=== PATIENT | female | born 2000 | race Caucasian/White ===

== ENCOUNTER 2019-03-04 06:13 | Inpatient (IN) | payer MEDICAID ==
[~2019-03-04] VITALS: Ht 152.4 cm; Wt 56.4 kg
[2019-03-04 06:54] VITALS: Ht 152.4 cm; Wt 56.4 kg
[2019-03-04 06:56] VITALS: BP 115/74; PULSE 120; RESP 18
[2019-03-04] MEDS ORDERED: LIDOCAINE 1% (MPF) 30 ML INJ INJ PRN (07:00)
[2019-03-04] MEDS ORDERED: MISOPROSTOL 200 MCG TAB PR PRN ×2 (07:00→23:30)
[2019-03-04] MEDS ORDERED: CARBOPROST 250 MCG INJ IM PRN ×2 (07:00→23:30)
[2019-03-04] MEDS ORDERED: AMPICILLIN 2 GM/NS (PMX) 100 ML IV ONE (07:00)
[2019-03-04] MEDS ORDERED: OXYTOCIN 30 UNITS/LR 500 ML IV PRN ×2 (07:00→23:30)
[2019-03-04] MEDS ORDERED: OXYTOCIN 30 UNITS/LR 500 ML IV SCH ×4 (07:00→23:25)
[2019-03-04] MEDS ORDERED: BUTORPHANOL 2 MG INJ IV PRN (07:00)
[2019-03-04] MEDS ORDERED: METHYLERGONOVINE 0.2 MG INJ IM PRN ×2 (07:00→23:30)
--- NOTE | 2019-03-04 07:17 | TRIAGE ---
OB Triage Datetime Report Generated by CPN: 03/04/2019 07:17 Datetime: 03/04/2019 07:13 Time of Arrival: 03/04/2019 05:55 EGA: 39.1 Arrived By: Stretcher Arrived From: Home Chief Complaint: SROM @0500 Movement: Present Contractions: Irregular Rupture of Membranes: Ruptured Vaginal Bleeding: None Vaginal Discharge: Denies Recent Sexual Intercouse: Denies Abdominal Trauma: Not Applicable Patient Complaints: Contractions Time Provider Notified: 03/04/2019 06:40 Provider Notified: Initial Plan: EFM, VE Datetime: 03/04/2019 07:12 Assessment Type: Triage Maternal Assessment Level of Consciousness: Fully Conscious DTR's/Clonus: DTRs 2+; No Clonus Headache: Denies Blurred Vision: No Respiratory Effort: Unlabored; Regular Rhythm; Equal Expansion Breath Sounds, Left: Clear and Equal Breath Sounds, Right: Clear and Equal Nausea/Vomiting: Denies RUQ Epigastric Pain: Denies Facial Edema: None Fall Risk Assessment History of Falling: (0) No Secondary Diagnosis: (0) No Ambulatory Aid: (0) Bedrest/Nurse Assist IV Therapy: (0) No Gait: (0) Normal/Bedrest/Immobile Mental Status: (0) Oriented to Own Ability Fall Score: 0 Fall Risk Score Definition: No Risk: No action required Datetime: 03/04/2019 07:06 Station: -3 Datetime: 03/04/2019 07:05 Vaginal Exam Dilatation (cms): 1.0 Effacement (%): 80 Datetime: 03/04/2019 07:04 Membrane Status: Ruptured Datetime: 03/04/2019 07:03 Membrane Status: Intact Membrane Status: Ruptured Datetime: 03/04/2019 07:02 Membrane Status: Intact
[2019-03-04] MEDS: LACTATED RINGER'S 1,000 ML IV SCH ×4 (08:00→20:43)
[2019-03-04] MEDS ORDERED: AMPICILLIN 1 GM/NS (PMX) 50 ML IV SCH (11:00)
[2019-03-04] MEDS ORDERED: FENTAnyl 2MCG/ML-ROPIV 0.2% 100 ML ONE (17:35)
[2019-03-04] MEDS ORDERED: AMPICILLIN 2 GM/NS (PMX) 100 ML IVPB ONE (18:30)
--- NOTE | 2019-03-04 18:41 | HP ---
Date/Time of Note Date/Time of Note DATE: 03/04/19 TIME: 18:38 OB - History Hx of Present Free Text/Dictation 18 years old 1 with single intrauterine at 39 weeks and 1 day with RICHIE of 03/10/2019 complaining of leakage of fluid since 5 AM. She states good movement. She denies nausea, vomiting, shortness of breath, chest pain, headache, visual changes, vaginal bleeding. Chief Complaint: Leakage of fluid Estimated Due Date: Mar 10, 2019 : 1 Care: Good Care Ultrasounds: Normal mid trimester US Obstetrical Complications: None, Growth Restriction Medical Complications: None Past Family/Social History * Past Medical, Surgical, Family and Obstetric Histories reviewed from chart. Blood Type: A+ Rubella: immune RPR/VDRL: Negative GBS Status: Negative HBsAG: Negative OB Admission Exam Vital Signs Vital Signs Vital Signs Date Temp Pulse Resp B/P (MAP) Pulse Ox O2 O2 Flow FiO2 Time Delivery Rate 03/04/19 120 18 115/74 06:56 (88) Physical Exam HEENT: WNL Heart: Rhythm Normal Lungs: Clear Abdomen: WNL Extremities: Normal Reflexes: Normal Cervical Dilatation: 3cm Effacement: 75% Station: -2 Membranes: Ruptured Amniotic Fluid: Clear Heart Rate: 130's Accelerations: Accelerations Present Decelerations: No Decelerations Varibility: Moderate Contractions on Admission: < 5 Minutes Apart Intensity: Moderate Last 72 hours Lab Results CBC & BMP 03/04/19 07:57 OB Assessment/Plan Other plan: 18 years old 1 single intrauterine at 39 weeks and 1 day with a spontaneous rupture of membranes in labor -FHR: No sign of metabolic acidosis- Category I -Continuous EFM, toco -CBC, blood type and screen -Analgesia options with R/B/A discussed in detail with patient -Epidural per patient request -Please see the orders -A/Rubella: Immune -GBS: Negative Admission, procedures, expectations, risks and possible complications have been discussed in detail with the patient. Risk of vaginal delivery including but not limited to bleeding, infection, cervical laceration, placental retention, injury to fetus, blood transfusion, blood transfusion related infection, risk of anesthesia, adhesion, cervical laceration, episiotomy/laceration, possible delivery with risk of bleeding, infection, injury to other organs (bowel, bladder, ureter, vessels, nerves), injury to fetus, blood transfusion, blood transfusion related infection, risk of anesthesia, scar and hernia formation, needs for future , removal of uterus or any other indicated surgery discussed with the patient. She expressed understanding and repeats the risks. All of her questions were answered. She signed the informed consent. PHYSICIAN'S VERIFICATION OF INFORMED CONSENT The patient was counseled regarding the procedure, its indications, risks, potential complications and alternatives and any questions were answered. Consent was obtained. PLANNED PROCEDURE/TREATMENT: Vaginal delivery, episiotomy, repair of laceration possible delivery LIBRADO QUIÑONEZ March 04, 2019 18:41
--- NOTE | 2019-03-04 20:42 | PREAC ---
Date/Time of Note Date/Time of Note DATE: 03/04/19 TIME: 20:41 Anesthesia Eval and Record Evaluation Time Pre-Procedure Interview DATE: 03/04/19 TIME: 17:04 Age 18 Sex female NPO: 8 hrs Preoperative diagnosis iup @ 39 wks., , labor Planned procedure ang Past Medical History Past Medical History: Includes : : (1), Para: (0), Gestational age: (39 wks.) Surgery & Anesthesia Issues No known issue Meds Anticoagulation: No Beta Dc within 24 hr: No Reason Beta Dc not given: Pt. not on B-Dc Current Medications Lactated Ringer's 1,000 ml @ 125 mls/hr Q8H IV Last administered on 03/04/19at 17:13; Admin Dose 125 MLS/HR; Start 03/04/19 at 06:52 Butorphanol Tartrate (Stadol) 2 mg Q2H PRN IV .PAIN SCALE 6-10 Last administered on 03/04/19at 14:46; Admin Dose 2 MG; Start 03/04/19 at 07:00 Lidocaine (Xylocaine 1% (Mpf)) 30 ml ONCE PRN INJ .EPISIOTOMY; Start 03/04/19 at 07:00 Oxytocin/Lactated Ringer's 500 ml @ 500 mls/hr ONCE POST IV ; Start 03/04/19 at 07:00 Oxytocin/Lactated Ringer's 500 ml @ 125 mls/hr POST IV ; Start 03/04/19 at 07:00 Oxytocin/Lactated Ringer's 500 ml @ 0 mls/hr ONCE PRN IV .VAGINAL BLEEDING; Start 03/04/19 at 07:00 Methylergonovine Maleate (Methergine) 0.2 mg ONCE PRN IM .VAGINAL BLEEDING; Start 03/04/19 at 07:00 Carboprost Tromethamine (Hemabate) 250 mcg ONCE PRN IM .VAGINAL BLEEDING; Start 03/04/19 at 07:00 Misoprostol (Cytotec) 1,000 mcg ONCE PRN [place] .VAGINAL BLEEDING; Start 03/04/19 at 07:00 Oxytocin/Lactated Ringer's 500 ml @ 0 mls/hr Q0M IV Last administered on 03/04/19at 13:19; Admin Dose 1 MLS/HR; Start 03/04/19 at 12:30 Ampicillin 50 ml @ 100 mls/hr Q4 IVPB ; Start 03/04/19 at 22:00 Meds reviewed: Yes Allergies Coded Allergies: No Known Allergy (Unverified , 03/04/19) Allergies Reviewed: Yes Labs/Studies Labs Reviewed: Reviewed by anesthesiologist Result Diagram: 03/04/19 0757 Laboratory Tests 03/04/19 07:57 Blood Bank Test 03/04/19 07:57 Antibody Screen NEGATIVE Blood Type A POSITIVE Rh Immune Globulin Candidate NO test: Positive Studies: ECG (n/a), CXR (n/a) Pre-procedure Exam Last vitals Vital Signs Date Temp Pulse Resp B/P (MAP) Pulse Ox O2 O2 Flow FiO2 Time Delivery Rate 03/04/19 120 18 115/74 06:56 (88) Airway: Adequate mouth opening, Adequate thyromental dist Mallampati: Mallampati II Teeth: Normal Lung: Normal Heart: Normal ASA Physical Status ASA physical status: 2 Emergency: E Planned Anesthetic Neuraxial: Epidural Planned Pain Management Epidural, Local by surgeon Pre-operative Attestations Prior to commencing anesthesia and surgery, the patient was re-evaluated, there was verification of: *The patient's identity *The results of appropriate recent lab work and preoperative vital signs *The above evaluation not changing prior to induction *Anesthetic plan, risk benefits, alternative and complications discussed with patient/family; questions answered; patient/family understands, accepts and wishes to proceed. Carton Wrapper used DEMARCO KEMP MD March 04, 2019 20:42
[2019-03-04] MEDS ORDERED: FENTAnyl 2MCG/ML-ROPIV 0.2% 100 ML BAG EPI SCH (21:00)
[2019-03-04] MEDS ORDERED: NALOXONE (0.4 MG/ML) INJ IV PRN (21:00)
[2019-03-04] MEDS ORDERED: MINERAL OIL LIGHT 10 ML VIAL TOP PRN (21:30)
[2019-03-04] MEDS ORDERED: AMPICILLIN 1 GM/NS (PMX) 50 ML IVPB SCH (22:00)
--- NOTE | 2019-03-04 23:24 | LDN ---
Date/Time of Note Date/Time of Note DATE: 03/04/19 TIME: 23:22 Delivery Summary of a viable baby girl weighiong 2905 grams or 6# 6 oz, 18.7" long, and with Apgars of 8/9. Weeks of Gestation 39w 1d Placenta Delivered: Spontaneously Meconium: none Episiotomy: No Perineal laceration: 0 Laceration repair: 1st degree vaginal lacerations repaired with 2-0 chromic. Anesthesia type: Epidural Estimated blood loss: 150 Sponge & Needle done & correct: Yes All needle counts correct: Yes Any foreign bodies felt in the: No (vagina) Delivery Information Sex Sex: female Apgars 1 Minute: 8 5 Minute: 9 Suctioning Nose & mouth suctioned at tom: Yes Delee suction performed: No Umbilical Cord Umbilical cord with: 3 Vessels Cord presentations: no nuchal cord Cord Blood was obtained: Yes Mother & Baby Disposition Disposition Mom & Baby to Maternity; Good: Yes Baby to NICU: No CIERRA PARK MD March 04, 2019 23:24
[2019-03-04] MEDS ORDERED: LACTATED RINGER'S 1,000 ML IV* SCH (23:25)
[2019-03-04] MEDS ORDERED: LANOLIN HPA 1 PKT TOP PRN (23:30)
[2019-03-05] MEDS: IBUPROFEN 600 MG TAB PO SCH ×5 (00:17→23:32)
[2019-03-05 01:10] VITALS: BP 119/75; PULSE 75; RESP 18
[2019-03-05] MEDS: BENZOCAINE 20% 56 ML SPRAY TOP PRN (02:25)
--- NOTE | 2019-03-05 04:02 | PAC ---
Date/Time of Note Date/Time of Note DATE: 03/05/19 TIME: 04:02 Post-Anesthesia Notes Post-Anesthesia Note Last documented vital signs Vital Signs Date Temp Pulse Resp B/P (MAP) Pulse Ox O2 O2 Flow FiO2 Time Delivery Rate 03/05/19 97.9 75 18 119/75 Room Air 01:10 (90) Activity: WNL Respiratory function: WNL Cardiovascular function: WNL Mental status: Baseline Pain reasonably controlled: Yes Hydration appropriate: Yes Nausea/Vomiting absent: Yes DEMARCO KEMP MD March 05, 2019 04:02
[2019-03-05 05:14] VITALS: BP 99/62; PULSE 95; RESP 17
[2019-03-05 08:00] VITALS: BP 110/70; PULSE 95; RESP 18
[2019-03-05 11:53] VITALS: BP 112/72; PULSE 75; RESP 18
--- NOTE | 2019-03-05 15:01 | QN ---
Documentation Comment day #1 Status post Patient stable and afebrile Vital signs stable VS - Last 72 Hours, by Label Date Temp Pulse Resp B/P (MAP) Pulse Ox O2 O2 Flow FiO2 Time Delivery Rate 03/05/19 98.2 75 18 112/72 Room Air 11:53 (85) 03/05/19 98.4 95 18 110/70 Room Air 08:00 (83) 03/05/19 98.6 95 17 99/62 (74) Room Air 05:14 03/05/19 97.9 75 18 119/75 Room Air 01:10 (90) 03/05/19 98.0 00:17 03/04/19 120 18 115/74 06:56 (88) Hematology - 72 Hrs Test 03/04/19 07:57 Hematocrit 38.2 % (37.0-47.0) Hemoglobin 12.9 g/dl (12.0-16.0) Mean Corpuscular Hemoglobin 31.3 pg (29.0-33.0) Mean Corpuscular Hemoglobin Concent 33.8 g/dl (32.0-37.0) Mean Corpuscular Volume 92.7 fl (72.0-104.0) Mean Platelet Volume 10.8 fl (7.4-10.4) H Platelet Count 248 10^3/UL (140-415) Red Blood Count 4.12 10^6/ul (4.20-5.40) L Red Cell Distribution Width 14.1 % (11.5-14.5) White Blood Count 7.7 10^3/ul (4.8-10.8) Abdomen soft, fundus firm Perineum intact Extremities nontender Assessment and plan Patient stable and doing well CBC in a.m. Continue with routine care LISET TARANGO MD March 05, 2019 15:01
[2019-03-05 16:00] VITALS: BP 98/54; PULSE 95; RESP 20
[2019-03-05 20:00] VITALS: BP 97/64; PULSE 86; RESP 18
[2019-03-06 04:08] VITALS: BP 126/83; PULSE 72; RESP 18
[2019-03-06] MEDS: HYDROCODONE/APAP (5/325) TAB PO PRN ×3 (04:26→22:53)
[2019-03-06] MEDS: IBUPROFEN 600 MG TAB PO SCH ×3 (05:48→17:49)
[2019-03-06 08:00] VITALS: BP 110/63; PULSE 83; RESP 18
[2019-03-06] MEDS ORDERED: DIPHTH/TET/ACEL PERTUSS (ADULT) 0.5 ML VIAL IM* ONE (09:00)
--- NOTE | 2019-03-06 11:58 | QN ---
Documentation Comment PPD# 2 is stable afebrile tolerates diet No VB +BM +voids Vs stable Gen NAD Abd soft NT ND Genitalia No blood at perineum --->Discharge Home with precautions AILEEN NEWMAN M.D. March 06, 2019 11:58
[2019-03-06] MEDS ORDERED: BUTORPHANOL 2 MG INJ IV ONE (13:50)
[2019-03-06] MEDS ORDERED: SOD CHLORIDE 0.9% 100 ML ONE (14:14)
[2019-03-06] MEDS ORDERED: IOHEXOL 300MG/ML 150 ML BTL ONE (14:14)
[2019-03-06 16:00] VITALS: BP 121/79; PULSE 83; RESP 18
[2019-03-06 20:00] VITALS: BP 126/84; PULSE 65; RESP 18
[2019-03-06] MEDS: BENZOCAINE 20% 56 ML SPRAY TOP PRN (23:33)
[2019-03-07] MEDS ORDERED: MAGNESIUM HYDROXIDE 30ML CUP PO ONE
[2019-03-07] MEDS: IBUPROFEN 600 MG TAB PO SCH ×3 (00:33→11:55)
[2019-03-07 04:00] VITALS: BP 110/74; PULSE 77; RESP 19
[2019-03-07 08:00] VITALS: BP 98/68; PULSE 96; RESP 18
--- NOTE | 2019-03-07 12:31 | PN ---
Date/Time of Note Date/Time of Note DATE: 03/07/19 TIME: 12:29 OB Subjective Subjective Subjective PPD# 3 Patient is doing well. She denies nausea, vomiting, shortness of breath, chest pain, headache, decreased appetite. She has been ambulating without difficulty, tolerating regular diet. Pain is well controlled on current medications. OB Objective Objective Objective General: AAO X 3, comfortable, NAD, appropriate mood and affect. ABD: +BS. Soft, mild tenderness at right side, no uterine tenderness. Uterus 2 cm below umbilicus Flank: No CVA tenderness (B/L) LE: Mild edema. No clubbing, cyanosis, thigh or calf tenderness (B/L). Homans 'sign is negative OB Assessment/Plan Other plan: 18 years old 1 para 1-0-0-1 s/p normal vaginal delivery. PPD#3 - AF, VSS - Baby is doing well, at bed side. She is bonding well - Contraception methods with R/B/A/FR discussed - Continue care - Discharge home - Rx and instruction given - Follow up in 2 and 6 weeks at clinic 2) she has mild right abdominal tenderness, CT scan of abdomen performed yesterday which was unremarkable. Patient was seen by surgeon today who rule out appendicitis and states she is okay to be discharged home. I strongly recommend come back to emergency department experiencing nausea, vomiting, decreased appetite or severe abdominal pain. Patient expressed understanding. All of her questions. LIBRADO QUIÑONEZ March 07, 2019 12:31
--- NOTE | 2019-03-07 12:39 | DS ---
Date/Time of Note Date/Time of Note DATE: 03/07/19 TIME: 12:37 Obstetrical Discharge Record Final Diagnosis Final Diagnosis: Term delivered Other Final Diagnosis 18 years old 1 para 1-0-0-1 s/p normal vaginal delivery. PPD#3. Her course was unremarkable except for mild right abdominal tenderness, CT scan of abdomen performed yesterday which was unremarkable. Patient was seen by surgeon today who rule out appendicitis and states she is okay to be discharged home. I strongly recommend come back to emergency department experiencing nausea, vomiting, decreased appetite or severe abdominal pain. Patient expressed understanding. All of her questions. She is ambulating, tolerating regular diet. She is voiding without difficulty. She had bowel movement. - AF, VSS - Baby is doing well, at bed side. She is bonding well - Contraception methods with R/B/A/FR discussed - Continue care - Discharge home - Rx and instruction given - Follow up in 2 and 6 weeks at clinic Vaginal Delivery Obstetrical Delivery: Spontaneous Condition on Discharge Physical Assessment Last Vitals: Vital Signs Date Temp Pulse Resp B/P (MAP) Pulse Ox O2 O2 Flow FiO2 Time Delivery Rate 03/07/19 99.2 96 18 98/68 (78) Room Air 08:00 Voiding: Yes Bowel Movement: Yes Breast: Soft, non-tender Fundus: Firm Calf Tenderness: No Patient Condition: Stable LIBRADO QUIÑONEZ March 07, 2019 12:39
--- NOTE | 2019-03-07 12:51 | CONS ---
Assessment/Plan Assessment/Plan Hospital Course (Demo Recall) Labs remain normal. The CT scan was performed that did not reveal any intra- abdominal pathology. Assessment/Plan (Daily) 18-year-old female with right lower quadrant pain rule out appendicitis after delivery. Given the absence of the clinical signs of appendicitis, normal white blood count, normal CT scan it is unlikely the patient has intra-abdominal surgical pathology. Patient can safely be discharged home, instructions were given if pain persist to come for follow-up Consultation Date/Type/Reason Admit Date/Time March 04, 2019 at 06:22 Date of Consultation: March 07, 2019 Type of Consult Surgical Reason for Consultation Right lower quadrant abdominal pain postdelivery Date/Time of Note DATE: 03/07/19 TIME: 12:49 Hx of Present Illness Otherwise healthy 18-year-old female after a vaginal delivery developed right lower quadrant pain without associated symptoms. Constitutional: no complaints, improved Eyes: no complaints ENT: no complaints Respiratory: no complaints Cardiovascular: no complaints Genitourinary: no complaints, other (See history of present illness) Musculoskeletal: no complaints Skin: no complaints Neurologic: no complaints Endocrine: no complaints Lymphatic: no complaints Psychological: no complaints, nl mood/affect Immunologic: no complaints Past Medical History Medical History: no pertinent history Medications Current Medications Ibuprofen (Motrin) 600 mg Q6 PO Last administered on 03/07/19at 11:55; Admin Dose 600 MG; Start 03/05/19 at 00:00 Acetaminophen/ Hydrocodone Bitart ([place] (5/325)) 1 tab Q4H PRN PO .PAIN 1-5 Last administered on 03/06/19at 22:53; Admin Dose 1 TAB; Start 03/04/19 at 23:30 Benzocaine (Dermoplast Winn) 1 spray BEDSIDE MEDICATION PRN TOP .HEMMORHOID/EPISIOTOMY PAIN Last administered on 03/06/19at 23:33; Admin Dose 1 SPRAY; Start 03/04/19 at 23:30 Lanolin (Lanolin Hpa) 1 applic BEDSIDE MEDICATION PRN TOP .NIPPLES Last administered on 03/05/19at 02:25; Admin Dose 1 APPLIC; Start 03/04/19 at 23:30 Oxytocin/Lactated Ringer's 500 ml @ 0 mls/hr ONCE PRN IV .VAGINAL BLEEDING; Start 03/04/19 at 23:30 Methylergonovine Maleate (Methergine) 0.2 mg ONCE PRN IM .VAGINAL BLEEDING; Start 03/04/19 at 23:30 Carboprost Tromethamine (Hemabate) 250 mcg ONCE PRN IM .VAGINAL BLEEDING; Start 03/04/19 at 23:30 Misoprostol (Cytotec) 1,000 mcg ONCE PRN [place] .VAGINAL BLEEDING; Start 03/04/19 at 23:30 Allergies: Coded Allergies: No Known Allergy (Unverified , 03/04/19) Past Surgical History Past Surgical Hx: no surgical history Family History Significant Family History: no pertinent family hx Social History Smoking Status: Never smoker Exam/Review of Systems Exam Vitals Vital Signs Date Temp Pulse Resp B/P (MAP) Pulse Ox O2 O2 Flow FiO2 Time Delivery Rate 03/07/19 99.2 96 18 98/68 (78) Room Air 08:00 Constitutional: alert, oriented, well developed Psych: no complaints, nl mood/affect Head: normocephalic, atraumatic Eyes: nl conjunctiva, EOMI, nl lids, nl sclera, PERRL ENMT: nl external ears & nose, nl lips & teeth, nl nasal mucosa & septum Neck: supple, non-tender Respiratory: clear to auscultation, normal air movement Cardiovascular: regular rate and rhythm, nl pulses Gastrointestinal: soft, nl liver, spleen, non-tender Musculoskeletal: nl extremities to inspection, nl gait and stance Extremities: normal pulses Neurological: PLANT SAFETY LEADER II-XII intact, nl mental status, nl speech, nl strength Skin: nl turgor; No rash or lesions Lymph: nl lymph nodes Results Result Diagram: 03/07/19 0002 03/07/19 0002 Results 24hrs Laboratory Tests Test 03/06/19 13:12 03/06/19 23:45 03/07/19 00:02 Blood Urea Nitrogen 11 13 Creatinine 0.59 0.87 Urine Color STRAW Urine Clarity CLEAR Urine pH 7.0 Urine Specific [place] 1.008 Urine Ketones NEGATIVE Urine Nitrite NEGATIVE Urine Bilirubin NEGATIVE Urine Urobilinogen NEGATIVE Urine Leukocyte Esterase NEGATIVE Urine Microscopic RBC 157 H Urine Microscopic WBC 5 Urine Squamous Epithelial Cells FEW Urine Transitional Epithelial Cells FEW A Urine Hemoglobin 3+ H Urine Glucose NEGATIVE Urine Total Protein NEGATIVE White Blood Count 8.4 Red Blood Count 4.10 L Hemoglobin 13.0 Hematocrit 38.6 Mean Corpuscular Volume 94.1 Mean Corpuscular Hemoglobin 31.7 Mean Corpuscular Hemoglobin Concent 33.7 Red Cell Distribution Width 13.9 Platelet Count 237 Mean Platelet Volume 10.4 Immature Granulocytes % 0.700 H Neutrophils % 70.7 Lymphocytes % 20.3 Monocytes % 6.9 Eosinophils % 1.2 Basophils % 0.2 Nucleated Red Blood Cells % 0.0 Immature Granulocytes # 0.060 H Neutrophils # 5.9 Lymphocytes # 1.7 Monocytes # 0.6 Eosinophils # 0.1 Basophils # 0.0 Nucleated Red Blood Cells # 0.0 Sodium Level 139 Potassium Level 3.9 Chloride Level 106 Carbon Dioxide Level 27 Anion Gap 6 Est Glomerular Filtrat Rate mL/min > 60 Glucose Level 98 Calcium Level 9.2 Total Bilirubin 0.4 Direct Bilirubin 0.00 Indirect Bilirubin 0.4 Aspartate Amino Transf (AST/SGOT) 28 Alanine Aminotransferase (ALT/SGPT) 23 Alkaline Phosphatase 115 Total Protein 6.4 Albumin 3.5 Globulin 2.90 Albumin/Globulin Ratio 1.20 Medications Medication Current Medications Ibuprofen (Motrin) 600 mg Q6 PO Last administered on 03/07/19at 11:55; Admin Dose 600 MG; Start 03/05/19 at 00:00 Acetaminophen/ Hydrocodone Bitart ([place] (5/325)) 1 tab Q4H PRN PO .PAIN 1-5 Last administered on 03/06/19at 22:53; Admin Dose 1 TAB; Start 03/04/19 at 23:30 Benzocaine (Dermoplast Winn) 1 spray BEDSIDE MEDICATION PRN TOP .HEMMO RHOID/EPISIOTOMY PAIN Last administered on 03/06/19at 23:33; Admin Dose 1 SPRAY; Start 03/04/19 at 23:30 Lanolin (Lanolin Hpa) 1 applic BEDSIDE MEDICATION PRN TOP .NIPPLES Last administered on 03/05/19at 02:25; Admin Dose 1 APPLIC; Start 03/04/19 at 23:30 Oxytocin/Lactated Ringer's 500 ml @ 0 mls/hr ONCE PRN IV .VAGINAL BLEEDING; Start 03/04/19 at 23:30 Methylergonovine Maleate (Methergine) 0.2 mg ONCE PRN IM .VAGINAL BLEEDING; Start 03/04/19 at 23:30 Carboprost Tromethamine (Hemabate) 250 mcg ONCE PRN IM .VAGINAL BLEEDING; Start 03/04/19 at 23:30 Misoprostol (Cytotec) 1,000 mcg ONCE PRN [place] .VAGINAL BLEEDING; Start 03/04/19 at 23:30 JEANA AGUILAR MD March 07, 2019 12:51
--- NOTE | 2019-03-08 15:23 | DELSUM ---
Delivery Summary A-C Datetime Report Generated by CPN: 03/08/2019 15:22 DELIVERY PERSONNEL Pig Lead Melter Helper: Fistell, Chris MATERNAL INFORMATION Delivery Anesthesia: Epidural Medications in Delivery: PITOCIN 30 UNITS IN 500 ML L/R INJ IV BOLUS Delivery QBL (ml): 150 Placenta Cultured: No Maternal Complications: None LABOR SUMMARY EDC: 03/10/2019 00:00 No. Babies in Womb: 1 Attempted: No Labor Anesthesia: Epidural LABOR INFORMATION Reason for Induction: Not Applicable Onset of Labor: 03/04/2019 06:15 Complete Dilatation: 03/04/2019 22:15 Oxytocin: Augmentation Group B Beta Strep: Negative Antibiotics # of Doses: AMPICILLIN 2 GM Antibiotics Time of Last Dose: 03/04/2019 19:00 Steroids Given: None Reason Steroids Not Administered: Not Applicable MEMBRANES Membranes Rupture Method: Spontaneous Rupture of Membranes: 03/04/2019 05:00 Length of Rupture (hr): 17.72 Amniotic Fluid Color: Clear Amniotic Fluid Amount: Scant Amniotic Fluid Odor: None STAGES OF LABOR Stage 1 hr: 16 Stage 1 min: 0 Stage 2 hr: 0 Stage 2 min: 28 Stage 3 hr: 0 Stage 3 min: 7 Total Time in Labor hr: 16 Total Time in Labor min: 35 VAGINAL DELIVERY Episiotomy: None Laceration Extension: First Degree Laceration Type: Vaginal Laceration Repair: Yes Initial Vag Sponge Count: 10 Final Vag Sponge Count: 10 Initial Vag Sharps Count: 1 Final Vag Sharps Count: 2 Sponge Count Correct: Yes Sharps Count Correct: Yes BABY A INFORMATION Delivery Date/Time: 03/04/2019 22:43 Method of Delivery: Vaginal Born in Route : No : N/A Forceps: N/A Vacuum Extraction: N/A Shoulder Dystocia : N/A SHOULDER DYSTOCIA BABY A Delivery Date/Time: 03/04/2019 22:43 PRESENTATION/POSITION BABY A Presentation: Cephalic Cephalic Presentation: Vertex Vertex Position: Right Occipital Anterior Breech Presentation: Double Footling PLACENTA INFORMATION BABY A Placenta Delivery Time : 03/04/2019 22:50 Placenta Method of Delivery: Spontaneous Placenta Status: Delivered SCORES BABY A Heart Rate 1 min: >100 bpm Resp Effort 1 min: Good Cry Reflex Irritability 1 min: Cough/Sneeze/Pulls Away Muscle Tone 1 min: Active Motion Color 1 min: Blue/Pale Resuscitation Effort 1 min: Tactile Stimulation SCORE 1 MIN: 8 Heart Rate 5 min: >100 bpm Resp Effort 5 min: Good Cry Reflex Irritability 5 min: Cough/Sneeze/Pulls Away Muscle Tone 5 min: Active Motion Color 5 min: Body [place], Extremit Blue SCORE 5 MIN: 9 INFORMATION BABY A Gestational Age at Delivery: 39.1 Gestational Status: Full Term- 39- 40.6 Weeks Infant Outcome : Liveborn Infant Condition : Stable Infant Sex: Female IDENTIFICATION/MEDS BABY A ID Band Number: [id number] ID Band Location: Right Leg; Left Arm Sensor Applied: Yes Sensor Number: [id number] Sensor Location : Cord Clamp Vitamin K Given : Not Given Erythromycin Given: Not Given WEIGHT/LENGTH BABY A Birthweight (gm): 2905 Weight (lb): 6 Weight (oz): 6 Length (in): 18.70 Infant Length (cm): 47.50 CORD INFORMATION BABY A No. Cord Vessels: 3 Nuchal Cord : Around Neck x1, Loose Cord Blood Taken: Yes Suction: Nose; Pharynx ASSESSMENT BABY A Physical Findings at Delivery: Other Physical Findings- Other: SKIN PEELING FROM HANDS, FEET AMD LABIA MAJORA Respirations: Appears Normal Oral Hygienist/ALS Called : Yes Care By: RT/RN Transferred To: Remains with Mother
== END 2019-03-07 14:25 | disposition home or self-care (01) | DRG 807 ==
LOC: OBT 06:13 → L-D 06:14 → OBT 06:22 → L-D 06:22 → PP1 03-05 01:12
PROVIDERS: ADMIT Obstetrics & Gynecology; ATTEND Obstetrics & Gynecology
PROC: 10E0XZZ Delivery of Products of Conception, External Approach (ICD-10-PCS; principal; 2019-03-04)
PROC: 0HQ9XZZ Repair Perineum Skin, External Approach (ICD-10-PCS; 2019-03-04)
DX: O70.0 First degree perineal laceration during delivery (principal); Z37.0 Single live birth; O90.89 Other complications of the puerperium, not elsewhere classified; R10.813 Right lower quadrant abdominal tenderness; Z3A.39 39 weeks gestation of pregnancy
CPT/HCPCS: 62322; 74177; 80053; 81001; 82565; 84520; 85025; 85610; 85730; 86592; 86850; 86900; 86901; 87340; 99464; G0463; J0290; J0595; J2590; J3010; J7120; Q9967